=== PATIENT | female | born 1980 | race African-American/Black ===

== ENCOUNTER 2017-04-25 17:40 | Emergency (ER) | payer SELFPAY ==
[2017-04-25 18:02] VITALS: BP 148/103
[2017-04-25] MEDS ORDERED: CLINDAMYCIN HCL 150 MG CAPSULE PO ONE (18:31)
--- NOTE | 2017-04-25 18:33 | ER Document Report ---
HPI - HPI Patient complains to provider of: Dental pain Onset: Other - 4 days Onset/Duration: Persistent, Worse Quality of pain: Sharp Pain Level: 5 Context: Patient complains of dental pain from a decayed, broken tooth for the past 4 days. Patient denies any fever. Patient does report left upper lip swelling that gets better throughout the day but then is present again when she wakes up in the morning. Associated Symptoms: Other - dental pain. denies: Fever Exacerbated by: Denies Relieved by: Denies Similar symptoms previously: Yes Recently seen / treated by doctor: No - ROS ROS below otherwise negative: Yes Systems Reviewed and Negative: Yes All other systems reviewed and negative - CONSTITUTIONAL Constitutional: DENIES: Fever, Chills - EENT Notes: dental pain - RESPIRATORY Respiratory: DENIES: Coughing - GASTROINTESTINAL Gastrointestinal: DENIES: Nausea, Patient vomiting - REPRODUCTIVE Reproductive: DENIES: : - MUSCULOSKELETAL Musculoskeletal: DENIES: Back Pain, Neck Pain - DERM Skin Color: Normal Skin Problems: None Past Medical History - General Information source: Patient - Social History Smoking Status: Current Every Day Smoker Frequency of alcohol use: None Drug Abuse: None Occupation: [employer] Family History: Reviewed & Not Pertinent Patient has suicidal ideation: No Patient has homicidal ideation: No - Past Medical History Cardiac Medical History: Reports: Hx Hypertension Renal/ Medical History: Denies: Hx Peritoneal Dialysis Surgical Hx: Negative - Immunizations Immunizations up to date: Yes Hx Diphtheria, Pertussis, Tetanus Vaccination: Yes Vertical Provider Document - CONSTITUTIONAL Agree With Documented VS: Yes Exam Limitations: No Limitations General Appearance: WD/WN, No Apparent Distress - INFECTION CONTROL TRAVEL OUTSIDE OF THE [place] IN LAST 30 DAYS: No - HEENT HEENT: Atraumatic, Normocephalic Mouth Diagram: 1 - Dental decay, tenderness, no gingival abscess - NECK Neck: Normal Inspection, Supple. negative: Lymphadenopathy-Left, Lymphadenopathy-Right - RESPIRATORY Respiratory: Breath Sounds Normal, No Respiratory Distress, Chest Non-Tender O2 Sat by Pulse Oximetry: 99 - CARDIOVASCULAR Cardiovascular: Regular Rate, Regular Rhythm, No Murmur - BACK Back: Normal Inspection - MUSCULOSKELETAL/EXTREMETIES Musculoskeletal/Extremeties: MAEW - NEURO Level of Consciousness: Awake, Alert, Appropriate Motor/Sensory: No Motor Deficit - DERM Integumentary: Warm, Dry, No Rash Course - Re-evaluation Re-evalutation: 04/25/17 18:32 The patient has been informed that they may have pre-hypertension or hypertension based on a blood pressure reading in the emergency department. I recommend that patient call the primary care provider listed on their discharge instructions or a physician of their choice by this week to arrange follow-up for further evaluation of possible pre-hypertension her hypertension. - Vital Signs Vital signs: Temp Pulse Resp BP Pulse Ox 98.7 F 93 20 148/103 H 99 04/25/17 17:57 04/25/17 17:57 04/25/17 17:57 04/25/17 17:57 04/25/17 17:57 Discharge - Discharge Clinical Impression: Infected dental caries, Hx of essential hypertension Condition: Stable Disposition: HOME, SELF-CARE Instructions: Clindamycin ([facility]), Oral Narcotic Medication ([facility]), Dentist, Dental Infection or Abscess ([facility]) Additional Instructions: Return immediately for any new or worsening symptoms Followup with your primary care provider, call tomorrow to make a followup appointment Follow-up with dental care provider Your blood pressure was elevated today, recheck with primary doctor to have this reevaluated. Prescriptions: Clindamycin HCl [Cleocin 300 mg Capsule] 300 mg PO TID #21 capsule Hydrocodone/Acetaminophen [[place] 5-325 Tablet] 1 each PO Q4 PRN #15 tablet PRN Reason: Naproxen [Naprosyn 250 Nmg Tablet] 1 tab PO BID #14 tablet Forms: Elevated Blood Pressure, Return to Work Referrals: [facility] [Provider Group] - Follow up as needed [facility] [Provider Group] - Follow up as needed
== END 2017-04-25 18:58 | disposition home or self-care (01) ==
LOC: ER 17:40
DX: K04.7 Periapical abscess without sinus (principal); K02.9 Dental caries, unspecified; F17.200 Nicotine dependence, unspecified, uncomplicated; I10 Essential (primary) hypertension
CPT/HCPCS: 99282

== ENCOUNTER 2017-08-04 16:53 | Emergency (ER) | payer SELFPAY ==
[2017-08-04] MEDS ORDERED: CLINDAMYCIN HCL 150 MG CAPSULE PO ONE (18:04)
[2017-08-04] MEDS ORDERED: HYDROCODONE/ACETAMINOPHEN 5-325 MG TABLET PO ONE (18:05)
--- NOTE | 2017-08-04 18:07 | ER Document Report ---
HPI - HPI Patient complains to provider of: Dental infection Onset: Other - 3 days Onset/Duration: Worse Quality of pain: Achy Pain Level: 3 Context: Patient complains of a filling falling out of her 2 3 days ago. Patient states that she is gradually developed right-sided facial swelling. No fever. Patient denies any difficulty swallowing or breathing. Associated Symptoms: Other - Dental pain. denies: Fever Exacerbated by: Denies Relieved by: Denies Similar symptoms previously: Yes Recently seen / treated by doctor: No - ROS ROS below otherwise negative: Yes Systems Reviewed and Negative: Yes All other systems reviewed and negative - CONSTITUTIONAL Constitutional: DENIES: Fever - EENT Notes: Dental pain - RESPIRATORY Respiratory: DENIES: Coughing - GASTROINTESTINAL Gastrointestinal: DENIES: Nausea, Patient vomiting - REPRODUCTIVE Reproductive: DENIES: : - MUSCULOSKELETAL Musculoskeletal: DENIES: Neck Pain - DERM Skin Color: Normal Skin Problems: None Past Medical History - General Information source: Patient - Social History Smoking Status: Current Every Day Smoker Frequency of alcohol use: None Drug Abuse: None Occupation: None Lives with: Family Family History: Reviewed & Not Pertinent Patient has suicidal ideation: No Patient has homicidal ideation: No - Past Medical History Cardiac Medical History: Reports: Hx Hypertension Renal/ Medical History: Denies: Hx Peritoneal Dialysis Surgical Hx: Negative - Immunizations Immunizations up to date: Yes Hx Diphtheria, Pertussis, Tetanus Vaccination: Yes Vertical Provider Document - CONSTITUTIONAL Agree With Documented VS: Yes Exam Limitations: No Limitations General Appearance: WD/WN, No Apparent Distress - INFECTION CONTROL TRAVEL OUTSIDE OF THE [place] IN LAST 30 DAYS: No - HEENT HEENT: Atraumatic, Normocephalic. negative: Pharyngeal Exudate, Pharyngeal Tenderness, Pharyngeal Erythema, Tympanic Membrane Red, Tympanic Membrane Bulging Mouth Diagram: 1 - decay, fracture, tenderness, no trismus Notes: Patient with widespread dental decay, patient with gingival near tooth #3, no drainable abscess - NECK Neck: Normal Inspection, Supple. negative: Lymphadenopathy-Left, Lymphadenopathy-Right - RESPIRATORY Respiratory: Breath Sounds Normal, No Respiratory Distress, Chest Non-Tender O2 Sat by Pulse Oximetry: 98 - CARDIOVASCULAR Cardiovascular: Regular Rate, Regular Rhythm, No Murmur - MUSCULOSKELETAL/EXTREMETIES Musculoskeletal/Extremeties: MAEW - NEURO Level of Consciousness: Awake, Alert, Appropriate Motor/Sensory: No Motor Deficit - DERM Integumentary: Warm, Dry, No Rash Course - Vital Signs Vital signs: Temp Pulse Resp BP Pulse Ox 98.8 F 85 18 154/111 H 98 08/04/17 17:53 08/04/17 17:53 08/04/17 17:53 08/04/17 17:53 08/04/17 17:53 Discharge - Discharge Clinical Impression: Hx of essential hypertension, Infected dental caries Condition: Stable Disposition: HOME, SELF-CARE Instructions: Clindamycin ([facility]), Dental Infection or Abscess ([facility]), Oral Narcotic Medication ([facility]), Toothache ([facility]) Additional Instructions: Return immediately for any new or worsening symptoms Followup with your primary care provider, call tomorrow to make a followup appointment Follow-up with the dental care provider Prescriptions: Acetaminophen with Codeine [Acetaminophen-Cod #3 Tablet] 1 each PO Q6 PRN #15 tablet PRN Reason: Clindamycin HCl [Cleocin 300 mg Capsule] 300 mg PO TID #21 capsule Forms: Elevated Blood Pressure Referrals: [facility] [Provider Group] - Follow up as needed [facility] [Provider Group] - Follow up as needed
[2017-08-04 19:04] VITALS: BP 152/113
== END 2017-08-04 19:19 | disposition home or self-care (01) ==
LOC: ER 16:53
DX: K04.7 Periapical abscess without sinus (principal); K02.9 Dental caries, unspecified; I10 Essential (primary) hypertension; R22.0 Localized swelling, mass and lump, head; F17.200 Nicotine dependence, unspecified, uncomplicated
CPT/HCPCS: 99282

== ENCOUNTER 2017-08-28 17:05 | Emergency (ER) | payer SELFPAY ==
[2017-08-28] MEDS ORDERED: HYDROCODONE/ACETAMINOPHEN 5-325 MG TABLET PO ONE (18:07)
--- NOTE | 2017-08-28 18:08 | ER Document Report ---
HPI - HPI Patient complains to provider of: knee pain Onset: Other - 3 wks ago Onset/Duration: Persistent Quality of pain: Achy Pain Level: 3 Context: Patient states 3 weeks ago she kicked a truck door with her right foot. Patient states since then she has had a posterior right thigh tenderness and right knee pain. Patient states that last night she felt a pop in her knee and she fell hitting her knee. Patient complains of pain with ambulation. Associated Symptoms: Other - Right knee pain Exacerbated by: Movement Relieved by: Denies Similar symptoms previously: No Recently seen / treated by doctor: No - ROS ROS below otherwise negative: Yes Systems Reviewed and Negative: Yes All other systems reviewed and negative - NEURO Neurology: DENIES: Weakness - REPRODUCTIVE Reproductive: DENIES: : - MUSCULOSKELETAL Musculoskeletal: REPORTS: Extremity pain. DENIES: Swelling - DERM Skin Color: Normal, [place] Skin Problems: None Past Medical History - General Information source: Patient - Social History Smoking Status: Current Every Day Smoker Frequency of alcohol use: None Drug Abuse: None Occupation: [employer] Family History: Reviewed & Not Pertinent Patient has suicidal ideation: No Patient has homicidal ideation: No - Past Medical History Cardiac Medical History: Reports: Hx Hypertension Renal/ Medical History: Denies: Hx Peritoneal Dialysis Surgical Hx: Negative - Immunizations Immunizations up to date: Yes Hx Diphtheria, Pertussis, Tetanus Vaccination: Yes Vertical Provider Document - CONSTITUTIONAL Agree With Documented VS: Yes Exam Limitations: No Limitations General Appearance: WD/WN - INFECTION CONTROL TRAVEL OUTSIDE OF THE [place] IN LAST 30 DAYS: No - HEENT HEENT: Atraumatic, Normocephalic - NECK Neck: Normal Inspection - RESPIRATORY Respiratory: No Respiratory Distress O2 Sat by Pulse Oximetry: 98 - CARDIOVASCULAR Pulses: Normal: Posterior tibial - BACK Back: Normal Inspection - MUSCULOSKELETAL/EXTREMETIES Musculoskeletal/Extremeties: MAEW, FROM, Tender - Right hamstring tenderness with palpation, no ecchymosis or swelling, No Edema Notes: Right knee tenderness behind patella, no joint effusion, no laxity with varus or valgus maneuvers. Patellar tendon intact - NEURO Level of Consciousness: Awake, Alert, Appropriate Motor/Sensory: No Motor Deficit, No Sensory Deficit - DERM Integumentary: Warm, Dry, No Rash Course - Re-evaluation Re-evalutation: 08/28/17 The patient has been informed that they may have pre-hypertension or hypertension based on a blood pressure reading in the emergency department. I recommend that patient call the primary care provider listed on their discharge instructions or a physician of their choice by this week to arrange follow-up for further evaluation of possible pre-hypertension or hypertension. - Vital Signs Vital signs: Temp Pulse Resp BP Pulse Ox 98.3 F 93 18 154/111 H 98 08/28/17 18:02 08/28/17 18:02 08/28/17 18:02 08/28/17 18:02 08/28/17 18:02 - Diagnostic Test Radiology reviewed: Image reviewed, Reports reviewed Discharge - Discharge Clinical Impression: Hx of essential hypertension, Muscle strain Sprain, knee Qualifiers: Encounter type: initial encounter Involved ligament of knee: unspecified ligament Laterality: right Qualified Code(s): S83.91XA - Sprain of unspecified site of right knee, initial encounter Condition: Stable Disposition: HOME, SELF-CARE Instructions: Use of Crutches ([facility]), Ice & Elevation ([facility]), Muscle Relaxers ( [facility]), Muscle Strain ([facility]), Sprained Knee ([facility]) Additional Instructions: Return immediately for any new or worsening symptoms Followup with your primary care provider, call tomorrow to make a followup appointment Weightbearing as tolerated Follow-up with orthopedic doctor for further evaluation Prescriptions: Cyclobenzaprine HCl [Flexeril 10 Mg Tablet] 10 mg PO TID #15 tablet Naproxen [Naprosyn 250 Nmg Tablet] 1 tab PO BID #14 tablet Forms: Elevated Blood Pressure, Return to Work Referrals: [facility] [Provider Group] - Follow up tomorrow [facility] [Provider Group] - Follow up as needed
--- NOTE | 2017-08-28 18:54 | RADIOLOGY REPORT (SQ) ---
EXAM DESCRIPTION: KNEE RIGHT 4 VIEWS COMPLETED DATE/TIME: 08/28/2017 6:36 pm REASON FOR STUDY: r knee popped, pt fell COMPARISON: None. NUMBER OF VIEWS: Four views. TECHNIQUE: AP, lateral, and both oblique radiographic images acquired of the right knee. LIMITATIONS: None. FINDINGS: MINERALIZATION: Normal. BONES: No acute fracture or dislocation. No worrisome bone lesions. JOINT: No effusion. SOFT TISSUES: No soft tissue swelling. No radio-opaque foreign body. OTHER: No other significant finding. IMPRESSION: NEGATIVE STUDY OF THE RIGHT KNEE. NO RADIOGRAPHIC EVIDENCE OF ACUTE INJURY. TECHNICAL DOCUMENTATION: JOB ID: [id number] [employer]- All Rights Reserved
[2017-08-28 19:56] VITALS: BP 150/107
== END 2017-08-28 19:56 | disposition home or self-care (01) ==
LOC: ER 17:05
DX: S83.91XA Sprain of unspecified site of right knee, initial encounter (principal); I10 Essential (primary) hypertension; M25.561 Pain in right knee; M79.651 Pain in right thigh; W19.XXXA Unspecified fall, initial encounter
CPT/HCPCS: 99283

== ENCOUNTER 2018-01-21 21:28 | Emergency (ER) | payer SELFPAY ==
[2018-01-21] MEDS ORDERED: ASPIRIN 81 MG TABLET, CHEWABLE PO ONE (21:41)
[2018-01-21] MEDS ORDERED: ASPIRIN 81 MG TABLET, CHEWABLE ONE (21:44)
[2018-01-21] MEDS ORDERED: NITROGLYCERIN 0.4 MG/TAB 25 TAB/BOTTLE SL PRN (22:04)
[2018-01-21] MEDS ORDERED: NITROGLYCERIN 0.4 MG/TAB 25 TAB/BOTTLE ONE (22:07)
--- NOTE | 2018-01-21 22:07 | EKG REPORT ---
SEVERITY:- BORDERLINE ECG - SINUS RHYTHM PROBABLE LEFT ATRIAL ABNORMALITY ST ELEV, PROBABLE NORMAL EARLY REPOL PATTERN BORDERLINE PROLONGED QT INTERVAL : Confirmed by: Shadia Gillespie 21-Jan-2018 22:07:16
[2018-01-21 22:08] LABS: HEMATOCRIT 45.3 % (36.0-47.0); MEAN CORPUSCULAR HEMOGLOBIN 25.1 pg (27.0-33.4); MEAN CORPUSCULAR HGB CONC 33.1 g/dL (32.0-36.0); MEAN CORPUSCULAR VOLUME 76 fl (80-97); PLATELET COUNT 348 10^3/uL (150-450); RED BLOOD COUNT 5.97 10^6/uL (3.72-5.28); RED CELL DISTRIBUTION WIDTH 16.2 % (11.5-14.0); WHITE BLOOD COUNT 5.7 10^3/uL (4.0-10.5)
--- NOTE | 2018-01-21 22:09 | ER Document Report ---
ED General - General Mode of Arrival: Ambulatory Information source: Patient TRAVEL OUTSIDE OF THE U.[place] IN LAST 30 DAYS: No <VIDYA TREVINO - Last Filed: 01/22/18 00:52> <HAILY BOSE - Last Filed: 01/22/18 00:53> - General Chief Complaint: Chest Pain Stated Complaint: CHEST PAIN Time Seen by Provider: 01/21/18 21:52 Notes: Patient is a 37 year old female with a history of hypertension presents to the emergency department complaining of intermittent left sided chest pain onset 2 days ago. Patient describes the pain as "just not feeling right'" that radiates into her left shoulder. Patient also mentions taking her blood pressure and finding it to be 201/178 2 days ago. Patient states she proceeded take one of her mothers Lisinopril which brought her blood pressure down. Patient also complains of shortness of breath. Patient denies nausea, vomiting, diarrhea, or diaphoresis. Patient is noncompliant with her hypertension medication. Patient does not have a family history of [place]. (VIDYA TREVINO) - Related Data Allergies/Adverse Reactions: No Known Allergies Allergy (Verified 08/04/17 19:13) Past Medical History - General Information source: Patient - Social History Smoking Status: Current Every Day Smoker Cigarette use (# per day): No Chew tobacco use (# tins/day): No Smoking Education Provided: No Frequency of alcohol use: None Family History: Hypertension, Other - Diabetes - Past Medical History Cardiac Medical History: Reports: Hx Hypertension - Immunizations Immunizations up to date: Yes Hx Diphtheria, Pertussis, Tetanus Vaccination: Yes <VIDYA TREVINO - Last Filed: 01/22/18 00:52> Review of Systems - Review of Systems Constitutional: No symptoms reported EENT: No symptoms reported Cardiovascular: See HPI, Chest pain Respiratory: See HPI, Short of breath Gastrointestinal: No symptoms reported Genitourinary: No symptoms reported Female Genitourinary: No symptoms reported Musculoskeletal: See HPI Skin: No symptoms reported Hematologic/Lymphatic: No symptoms reported Neurological/Psychological: No symptoms reported -: Yes All other systems reviewed and negative <VIDYA TREVINO - Last Filed: 01/22/18 00:52> Physical Exam <VIDYA TREVINO - Last Filed: 01/22/18 00:52> <HAILY BOSE - Last Filed: 01/22/18 00:53> - Vital signs Vitals: Resp Pulse Ox 18 100 01/21/18 21:44 01/21/18 21:44 - Notes Notes: GENERAL: Alert, interacts well. Appears anxious. HEAD: Normocephalic, atraumatic. EYES: Pupils equal, round, and reactive to light. Extraocular movements intact. ENT: Oral mucosa moist, tongue midline. NECK: Full range of motion. Supple. Trachea midline. LUNGS: Clear to auscultation bilaterally, no wheezes, rales, or rhonchi. No respiratory distress. HEART: Mild tachycardic. No murmurs, gallops, or rubs. ABDOMEN: Obese. Soft, non-tender. Non-distended. Bowel sounds present in all 4 quadrants. EXTREMITIES: Moves all 4 extremities spontaneously. NEUROLOGICAL: Alert and oriented x3. Normal speech. PSYCH: Normal affect, normal mood. SKIN: Warm, dry, normal turgor. No rashes or lesions noted. (VIDYA TREVINO) Course - Laboratory Result Diagrams: 01/21/18 21:55 01/21/18 21:55 <VIDYA TREVINO - Last Filed: 01/22/18 00:52> - Laboratory Result Diagrams: 01/21/18 21:55 01/21/18 21:55 <HAILY BOSE - Last Filed: 01/22/18 00:53> - Re-evaluation Re-evalutation: 01/22/18 00:43 Patient complained of intermittent left-sided chest pain since Saturday when she had markedly elevated blood pressure of approximately 220/170 per the patient, states that she has not been taking her antihypertensives as she was out of medication and does not have a primary care physician. Patient states she then started taking her mother's blood pressure medication and her blood pressure steadily decreased but her pain is continued to be intermittent. It became worse this evening and was associated with shortness of breath, on arrival to the emergency department the patient had an initial EKG with concerning ischemic changes but no actual signs of infarction, EKG showed sinus rhythm at a rate of 96, ST segment depressions in leads III and aVF, ST segment elevations in V1, V2 and slight elevations in V3 however none of these were quite 2 mm so it did not meet STEMI criteria. Chest pain continued and the EKG was repeated in approximately 20 minutes, repeat EKG shows sinus tachycardia at a rate of 100, ST segment elevations have markedly increased in lead V2 and V3 as well as V4 and V5 however the ST segment depressions resolved in lead III, this could be early repolarization from left ventricular hypertrophy, we did consult with Dr. Gillespie the graphic design professor production line worker for EKGs, he stated that he doubted this was a STEMI at this time but recommended she be transferred for cardiac catheterization due to dynamic changes. Agreed with anticoagulating the patient and consulting in interventional hospital. We did give the patient nitroglycerin and performed a repeat EKG however the nitroglycerin was given after the repeat EKG, repeat EKG at 2209 showed sinus rhythm at a rate of 97, ST segment elevations had improved in V2 and V3 as well as V4, ST segment depressions remained resolved in lead III and aVF, T-wave inversions remained in lead III. Patient still does not meet STEMI criteria. Chest pain completely resolved with the nitroglycerin, she was only tachycardic while I was discussing the possibility of a heart attack with her, blood pressure has remained in the 130s-140s after administering 1 tablet of nitroglycerin sublingual. Pain has not returned after single sublingual nitroglycerin. Patient was placed on heparin. I did discuss the case with Dr. Porter from [facility], while he was discussing the case with him her troponin came back and was positive at 0.619. We are both concerned for non-STEMI with an unstable atheromatous plaque causing dynamic EKG changes. He recommended I discussed this with cardiology. I discussed this case with the cardiology PA Neelam Wren who accepted the patient on behalf of Dr. Sanabria. She stated she did not feel that the patient met criteria for rapid transfer however I am quite concerned by a positive troponin with intermittent chest pain and dynamic EKG changes in such a young the patient who does have risk factors including obesity and noncompliance with antihypertensives. I have requested that the patient be a rapid transfer. Patient has not had any further chest pain. EMS crew was on the way to transport the patient, she has been given an inpatient bed in the emergency department. Patient stable for transport at this time. ( HAILY BOSE) - Vital Signs Vital signs: Temp Pulse Resp BP Pulse Ox 98.7 F 100 21 H 146/103 H 100 01/22/18 00:48 01/21/18 22:21 01/22/18 00:48 01/22/18 00:48 01/22/18 00:48 - Laboratory Laboratory results interpreted by me: 01/21/18 01/21/18 01/21/18 21:55 21:55 21:55 RBC 5.97 H MCV 76 L MCH 25.1 L RDW 16.2 H Potassium 3.3 L Calcium 10.4 H Creatine Kinase 215 H CK-MB (CK-2) 4.60 H - EKG Interpretation by Me Additional EKG results interpreted by me: 01/22/18 00:47 First EKG at 2133 shows sinus rhythm at a rate of 96, normal axis, normal intervals, ST segment elevation of half a millimeter in V1, not quite 2 mm in V2 , 1-1/2 mm in V3, 1 mm in V4, ST segment depression of approximately half millimeter in lead III with T-wave inversions and slight ST segment depression in aVF per my interpretation. Repeat EKG at 2156 shows sinus tachycardia at a rate of 100, worsening ST segment elevations in V2 through V4 with new ST segment elevations in V5 however the ST segment depressions in 2 and aVF have resolved, still does not fit STEMI criteria, per my interpretation. Repeat EEG at 2208 just prior to administering nitroglycerin shows sinus rhythm at a rate of 97, ST segment elevations have improved significantly but remain in V2 through V4, elevations in V5 have resolved, T-wave inversions remain in lead III, ST segment depressions have resolved in lead III and aVF per my interpretation. (HAILY BOSE) Critical Care Note - Critical Care Note Total time excluding time spent on procedures (mins): 45 <HAILY BOSE - Last Filed: 01/22/18 00:53> Discharge <VIDYA TREVINO - Last Filed: 01/22/18 00:52> <HAILY BOSE - Last Filed: 01/22/18 00:53> - Discharge Clinical Impression: Non-STEMI (non-ST elevated myocardial infarction) Hypertension Qualifiers: Hypertension type: essential hypertension Qualified Code(s): I10 - Essential ( primary) hypertension Condition: Fair Disposition: [facility] Scribe Attestation: 01/22/18 00:53 I personally performed the services described in the documentation, reviewed and edited the documentation which was dictated to the scribe in my presence, and it accurately records my words and actions. (HAILY BOSE) Scribe Documentation - Scribe Written by Freddy:: Freddy Robertson, 01/21/2018 22:09 acting as scribe for :: Vania <VIDYA TREVINO - Last Filed: 01/22/18 00:52>
--- NOTE | 2018-01-21 22:16 | EKG REPORT ---
SEVERITY:- ABNORMAL ECG - SINUS TACHYCARDIA PROBABLE LEFT ATRIAL ABNORMALITY ABNORMAL Q SUGGESTS ANTERIOR INFARCT BORDERLINE T ABNORMALITIES, INFERIOR LEADS ST ELEV, PROBABLE NORMAL EARLY REPOL PATTERN VS ISCHEMIC, REC REPEAT EKG : Confirmed by: Shadia Gillespie 21-Jan-2018 22:15:49
[2018-01-21 22:17] LABS: INTERNATIONAL RATION (INR) 0.89; PARTIAL THROMBOPLASTIN TIME 34.1 SEC (23.5-35.8); PROTHROMBIN TIME 12.7 SEC (11.4-15.4)
--- NOTE | 2018-01-21 22:19 | RADIOLOGY REPORT (SQ) ---
EXAM DESCRIPTION: CHEST SINGLE VIEW COMPLETED DATE/TIME: 01/21/2018 10:11 pm REASON FOR STUDY: Chest Pain r/o [place] COMPARISON: None. EXAM PARAMETERS: NUMBER OF VIEWS: One view. TECHNIQUE: Single frontal radiographic view of the chest acquired. RADIATION DOSE: NA LIMITATIONS: None. FINDINGS: LUNGS AND PLEURA: No opacities, masses or pneumothorax. No pleural effusion. MEDIASTINUM AND HILAR STRUCTURES: No masses. Contour normal. HEART AND VASCULAR STRUCTURES: Heart normal in size. Normal vasculature. BONES: No acute findings. HARDWARE: None in the chest. OTHER: No other significant finding. IMPRESSION: NO ACUTE RADIOGRAPHIC FINDING IN THE CHEST. TECHNICAL DOCUMENTATION: JOB ID: [id number] [employer]- All Rights Reserved Reading location - IP/workstation name: [email or web address]
--- NOTE | 2018-01-21 22:19 | EKG REPORT ---
SEVERITY:- DEFECTIVE ECG - RIGHT AND LEFT ARM LEADS REVERSED, PLEASE REPEAT ECG ST SEGMENT CHANGES SEEMS IMPROVED : Confirmed by: Shadia Gillespie 21-Jan-2018 22:18:47
[2018-01-21] MEDS ORDERED: MORPHINE SULFATE 10 MG/ML INJ IV ONE (22:21)
[2018-01-21 22:35] LABS: ANION GAP 14 (5-19); BLOOD UREA NITROGEN 11 mg/dL (7-20); CALCIUM 10.4 mg/dL (8.4-10.2); CARBON DIOXIDE 30 mmol/L (22-30); CHLORIDE 99 mmol/L (98-107); CREATINE KINASE 215 U/L (30-135); GLUCOSE 89 mg/dL (75-110); POTASSIUM 3.3 mmol/L (3.6-5.0); SODIUM 142.5 mmol/L (137-145)
[2018-01-21 22:46] LABS: CREATINE KINASE MB 4.6 ng/mL (<4.55)
[2018-01-21 22:48] LABS: TROPONIN I 0.619 ng/mL
[2018-01-21] MEDS ORDERED: HEPARIN SODIUM,PORCINE/D5W 25,000 UNIT/250 ML RTUINJ IV PRN (22:48)
[2018-01-21] MEDS ORDERED: HEPARIN SOD (PORCINE) 1,000 UNIT/ML 10 ML VIAL IV ONE (22:48)
[2018-01-22 00:50] VITALS: BP 146/103
[2018-01-22] MEDS ORDERED: HEPARIN SOD (PORCINE) 1,000 UNIT/ML 10 ML VIAL IV PRN (01:48)
--- NOTE | 2018-01-22 08:28 | EKG REPORT ---
SEVERITY:- ABNORMAL ECG - SINUS RHYTHM LEFT ATRIAL ABNORMALITY ST ELEV, PROBABLE NORMAL EARLY REPOL PATTERN : Confirmed on behalf of: Shadia Gillespie 22-Jan-2018 08:27:49
--- NOTE | 2018-01-22 08:34 | EKG REPORT ---
SEVERITY:- DEFECTIVE ECG - RIGHT AND LEFT ARM LEADS REVERSED, PLEASE REPEAT ECG ST SEGMENT CHANGES SEEMS IMPROVED : Confirmed on behalf of: Shadia Gillespie 22-Jan-2018 08:33:33
== END 2018-01-22 01:09 | disposition short-term general hospital (02) ==
LOC: ER 21:28
DX: I21.4 Non-ST elevation (NSTEMI) myocardial infarction (principal); I10 Essential (primary) hypertension; T46.5X6A Underdosing of other antihypertensive drugs, initial encounter; Z91.128 Patient's intentional underdosing of medication regimen for other reason; Z91.14 Patient's other noncompliance with medication regimen; E66.9 Obesity, unspecified; R06.02 Shortness of breath; R07.9 Chest pain, unspecified; F17.200 Nicotine dependence, unspecified, uncomplicated
CPT/HCPCS: 93005 ×2; 96376; 99291; 96375; 96365; 96366; 36415; 82553; 82550; 85027; 85610; 85730; 80048; 84484; 71045; 93010 ×2; J1644 ×2; J2270

== ENCOUNTER 2018-01-30 20:13 | Emergency (ER) | payer SELFPAY ==
[2018-01-30] MEDS ORDERED: PENICILLIN V POTASSIUM 500 MG TABLET PO ONE (22:14)
[2018-01-30] MEDS ORDERED: OXYCODONE-ACETAMINOPHEN 5-325 MG TABLET PO ONE (22:15)
--- NOTE | 2018-01-30 22:18 | ER Document Report ---
HPI - HPI Patient complains to provider of: Dental pain Onset: Yesterday Onset/Duration: Gradual Quality of pain: Sharp Pain Level: 4 Context: Patient presents complaining of dental pain started yesterday. Patient denies any fever. Patient states that she was recently discharged from [facility] after having an CA in getting a stent placed last week. Patient states she has been compliant with taking her blood pressure medication although it has remained somewhat elevated. Patient denies any headache, chest pain, back pain or dyspnea. Associated Symptoms: Other - Dental pain. denies: Chest pain, Productive cough , Fever, Shortness of breath Exacerbated by: Denies Relieved by: Denies Similar symptoms previously: Yes Recently seen / treated by doctor: Yes - ROS ROS below otherwise negative: Yes Systems Reviewed and Negative: Yes All other systems reviewed and negative - CONSTITUTIONAL Constitutional: DENIES: Fever, Chills - EENT Notes: Toothache - NEURO Neurology: DENIES: Headache - CARDIOVASCULAR Cardiovascular: DENIES: Chest pain - RESPIRATORY Respiratory: DENIES: Trouble Breathing, Coughing - GASTROINTESTINAL Gastrointestinal: DENIES: Abdominal Pain - REPRODUCTIVE LMP: na Reproductive: DENIES: : - DERM Skin Color: Normal Skin Problems: None Past Medical History - General Information source: Patient - Social History Smoking Status: Current Every Day Smoker Smoking Education Provided: Yes Frequency of alcohol use: None Drug Abuse: None Occupation: none Family History: Hypertension, Other - Diabetes - Past Medical History Cardiac Medical History: Reports: Hx Heart Attack, Hx Hypertension Renal/ Medical History: Denies: Hx Peritoneal Dialysis Past Surgical History: Reports: Hx Coronary Stent - Immunizations Immunizations up to date: Yes Hx Diphtheria, Pertussis, Tetanus Vaccination: Yes Vertical Provider Document - CONSTITUTIONAL Agree With Documented VS: Yes Exam Limitations: No Limitations General Appearance: WD/WN, No Apparent Distress - INFECTION CONTROL TRAVEL OUTSIDE OF THE [place] IN LAST 30 DAYS: No - HEENT HEENT: Atraumatic, Normocephalic. negative: Pharyngeal Exudate, Pharyngeal Tenderness, Pharyngeal Erythema, Tympanic Membrane Red, Tympanic Membrane Bulging Mouth Diagram: 1 - Dental decay, fracture, no drainable abscess, no trismus, no potential airway compromise - NECK Neck: Normal Inspection, Supple. negative: Lymphadenopathy-Left, Lymphadenopathy-Right - RESPIRATORY Respiratory: Breath Sounds Normal, No Respiratory Distress - CARDIOVASCULAR Cardiovascular: Regular Rate, Regular Rhythm, No Murmur - BACK Back: Normal Inspection - MUSCULOSKELETAL/EXTREMETIES Musculoskeletal/Extremeties: JUAN ANTONIO VASQUES - NEURO Level of Consciousness: Awake, Alert, Appropriate Motor/Sensory: No Motor Deficit - DERM Integumentary: Warm, Dry, No Rash Course - Re-evaluation Re-evalutation: 01/30/18 22:16 Controlled substance database reviewed. Patient encouraged to follow-up with dental care provider for further evaluation. Patient states she did take her blood pressure medication tonight. Patient without any other symptoms. Patient without any drainable abscess, no potential airway compromise. 01/30/18 22:[address] Booker guarding management of patient's hypertension here in the department. Patient does state that she has checked her blood pressure since her hospital discharge and his been elevated at home [address] Booker recommends increasing patient's metoprolol dose to 50 mg in the morning and keeping it at 25 mg in the evening. Advises given clonidine here to help bring her blood pressure down tonight. - Vital Signs Vital signs: Temp Pulse Resp BP Pulse Ox 98.8 F 78 18 178/112 H 100 01/30/18 20:42 01/30/18 20:42 01/30/18 20:42 01/30/18 20:42 01/30/18 20:42 Discharge - Discharge Clinical Impression: Toothache Hypertension Qualifiers: Hypertension type: unspecified Qualified Code(s): I10 - Essential (primary) hypertension Condition: Stable Disposition: HOME, SELF-CARE Instructions: Oral Narcotic Medication ([facility]), Penicillin V K ([facility]), Toothache ( [facility]) Additional Instructions: Return immediately for any new or worsening symptoms Followup with your primary care provider, call tomorrow to make a followup appointment Follow-up with a dental care provider Increase your dose of metoprolol to 50 mg in the morning and 25 mg at night. With your current 25 mg tablets, you will take 2 tablets in the morning and 1 tablet at night. Follow-up with your [facility] for recheck next week. Monitor your blood pressure daily and keep a log to present to your [facility] and primary doctor for recheck. Prescriptions: Acetaminophen with Codeine [Acetaminophen-Cod #3 Tablet] 1 each PO Q6 PRN #12 tablet PRN Reason: Metoprolol Tartrate 25 mg PO ASDIR #45 tablet Penicillin V Potassium [Penicillin Vk 500 mg Tablet] 500 mg PO BID #20 tablet Forms: Smoking Cessation Education, Elevated Blood Pressure Referrals: [facility] [Provider Group] - Follow up as needed
[2018-01-30] MEDS ORDERED: CLONIDINE HCL 0.1 MG TABLET PO ONE (22:30)
[2018-01-30 23:26] VITALS: BP 151/106
== END 2018-01-30 23:54 | disposition home or self-care (01) ==
LOC: ER 20:13
DX: K02.9 Dental caries, unspecified (principal); K08.89 Other specified disorders of teeth and supporting structures; I25.2 Old myocardial infarction; I10 Essential (primary) hypertension; Z79.899 Other long term (current) drug therapy; F17.200 Nicotine dependence, unspecified, uncomplicated; Z95.5 Presence of coronary angioplasty implant and graft
CPT/HCPCS: 99282

== ENCOUNTER 2019-04-13 17:33 | Emergency (ER) | payer SELFPAY ==
[2019-04-13] MEDS ORDERED: ACETAMINOPHEN 325 MG TABLET PO ONE (18:14)
--- NOTE | 2019-04-13 18:58 | RADIOLOGY REPORT (SQ) ---
EXAM DESCRIPTION: KNEE RIGHT 4 VIEWS COMPLETED DATE/TIME: 04/13/2019 6:34 pm REASON FOR STUDY: pain COMPARISON: None. NUMBER OF VIEWS: Four views right knee LIMITATIONS: None. FINDINGS: No fracture or bone lesion. Joint spaces are relatively maintained on nonweightbearing vi ews. Joint effusion is present. OTHER: No other significant finding. IMPRESSION: Joint effusion. Bones intact. TECHNICAL DOCUMENTATION: JOB ID: [id number] Reading location - IP/workstation name: [email or web address]
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
[2019-04-13 19:53] VITALS: BP 150/110
== END 2019-04-13 19:53 | disposition home or self-care (01) ==
LOC: ER 17:33
DX: M25.461 Effusion, right knee (principal); M25.561 Pain in right knee; W19.XXXA Unspecified fall, initial encounter
CPT/HCPCS: 99283; 73564; L1830

== ENCOUNTER 2019-07-24 13:51 | Emergency (ER) | payer SELFPAY ==
[2019-07-24 13:57] VITALS: BP 184/112
--- NOTE | 2019-07-24 14:20 | ER Document Report ---
HPI - HPI Time Seen by Provider: 07/24/19 14:00 Pain Level: 2 Context: Patient is a 39-year-old female who presents to the emergency department with a chief complaint of pain to tooth #2. Her pain started yesterday. She denies any fever. Patient does not take any medications, but has a history of hypertension and a myocardial infarction with stent placement. Patient is a current everyday smoker. - CONSTITUTIONAL Constitutional: DENIES: Fever, Chills - EENT Notes: Tooth pain to tooth #2. - RESPIRATORY Respiratory: DENIES: Trouble Breathing - GASTROINTESTINAL Gastrointestinal: DENIES: Abdominal Pain, Nausea, Patient vomiting - REPRODUCTIVE Reproductive: DENIES: : - MUSCULOSKELETAL Musculoskeletal: DENIES: Extremity pain, Neck Pain - DERM Skin Color: Normal Skin Problems: None Past Medical History - Social History Smoking Status: Current Every Day Smoker Family History: Hypertension, Other - Diabetes Patient has suicidal ideation: No Patient has homicidal ideation: No - Past Medical History Cardiac Medical History: Reports: Hx Heart Attack, Hx Hypertension Renal/ Medical History: Denies: Hx Peritoneal Dialysis Past Surgical History: Reports: Hx Coronary Stent - Immunizations Immunizations up to date: Yes Hx Diphtheria, Pertussis, Tetanus Vaccination: Yes Vertical Provider Document - CONSTITUTIONAL Agree With Documented VS: Yes Exam Limitations: No Limitations General Appearance: No Apparent Distress - INFECTION CONTROL TRAVEL OUTSIDE OF THE [place] IN LAST 30 DAYS: No - HEENT HEENT: Atraumatic, Normocephalic Mouth Diagram: 1 - dental carry - RESPIRATORY Respiratory: Breath Sounds Normal, No Respiratory Distress - CARDIOVASCULAR Cardiovascular: Regular Rhythm Pulses: Normal: Radial - MUSCULOSKELETAL/EXTREMETIES Musculoskeletal/Extremeties: FROM - NEURO Level of Consciousness: Awake, Alert, Appropriate - DERM Integumentary: Warm, Dry, No Rash Course - Re-evaluation Re-evalutation: 07/24/19 14:20 Patient's physical exam and history is most consistent with a infected tooth. Patient is able to swallow, no facial swelling noted, airway is patent, vital signs are normal. I do not suspect Jay's angina, peritonsilar abscess, or airway obstruction. The patient will be started on oral antibiotics. I have given the patient education on their antibiotics. Patient was given instructions to follow-up with a dentist this week. Return precautions were given. Verbal discharge instructions were given. Patient verbalized understanding. Patient is stable for discharge. - Vital Signs Vital signs: Temp Pulse Resp BP Pulse Ox 98.4 F 81 18 184/112 H 98 07/24/19 13:52 07/24/19 13:52 07/24/19 13:52 07/24/19 13:52 07/24/19 13:52 Discharge - Discharge Clinical Impression: Toothache Condition: Stable Disposition: HOME, SELF-CARE Instructions: Toothache ([facility]) Additional Instructions: You have been seen in the emergency department for a toothache. You may take ibuprofen 600 mg and Tylenol 1000 mg every 6 hours as needed for the pain. You have also been given topical lidocaine. Placed that to the affected tooth as needed to help with pain. You have also been prescribed antibiotics. Please take the antibiotics as prescribed, even if you start to feel better. If you develop a fever greater than 100.4 F, or have any symptoms that are worrisome to you, please return to the emergency department. Please follow-up with the [facility] this week in regards to your visit. Call them today to make an appointment for next week. Stop smoking. :) Prescriptions: Penicillin V Potassium [Penicillin Vk 500 mg Tablet] 500 mg PO QID #28 tablet Forms: Smoking Cessation Education Referrals: [facility] [Provider Group] - Follow up in 1 week
[2019-07-24] MEDS ORDERED: LIDOCAINE 2% VISCOUS SOLN 20 ML UDCUP PO ONE (14:22)
[2019-07-24] MEDS ORDERED: PENICILLIN V POTASSIUM 500 MG TABLET PO ONE (14:34)
== END 2019-07-24 14:47 | disposition home or self-care (01) ==
LOC: ER 13:51
DX: K08.89 Other specified disorders of teeth and supporting structures (principal); I10 Essential (primary) hypertension; F17.200 Nicotine dependence, unspecified, uncomplicated
CPT/HCPCS: 99282; J3490